=== PATIENT | male | born 1950 | race Two or more races ===

== ENCOUNTER 2023-05-17 10:21 | Outpatient (CLI) | payer OTHER | END 2023-05-17 12:54 | disposition home or self-care (01) | LOC: RAD 10:21 | PROVIDERS: ATTEND General Practice | DX: R06.02 Shortness of breath (principal); R10.9 Unspecified abdominal pain; B35.1 Tinea unguium; L60.8 Other nail disorders; Z11.3 Encounter for screening for infections with a predominantly sexual mode of transmission; Z13.1 Encounter for screening for diabetes mellitus; Z13.220 Encounter for screening for lipoid disorders; Z13.228 Encounter for screening for other metabolic disorders; M40.10 Other secondary kyphosis, site unspecified; M40.12 Other secondary kyphosis, cervical region; M54.2 Cervicalgia ==

== ENCOUNTER 2025-02-08 10:20 | Outpatient (CLI) | payer OTHER ==
[~2025-02-08 10:20] MED LIST: ARTHRITIS PAIN150 G1 TOP; DUI500 PO; ELIQUIS2.5 MG PO; FLONASE16 GM; LEVOCETIRIZINE D5 MG; LORATADINE10 MG; LORATIDINE; MONTELUKAST SOD10 MG; PERCOCET 5-3251 EACH PO; ST. JOSEPH ASPI81 M2
== END 2025-02-08 10:35 | disposition home or self-care (01) ==
LOC: RAD 10:20
PROVIDERS: ATTEND General Practice
DX: E11.9 Type 2 diabetes mellitus without complications (principal); M41.9 Scoliosis, unspecified; M40.209 Unspecified kyphosis, site unspecified; E78.5 Hyperlipidemia, unspecified; N40.1 Benign prostatic hyperplasia with lower urinary tract symptoms; N39.0 Urinary tract infection, site not specified; Z13.89 Encounter for screening for other disorder; R10.2 Pelvic and perineal pain; M25.551 Pain in right hip; M25.552 Pain in left hip; M25.50 Pain in unspecified joint; M51.16 Intervertebral disc disorders with radiculopathy, lumbar region